=== PATIENT | male | born 1950 | race Caucasian/White ===

== ENCOUNTER 2016-04-21 12:09 | Emergency (ER) | payer MEDICARE, OTHER | END 2016-04-21 18:10 | disposition home or self-care (01) | LOC: ER 12:09 | DX: I63.9 Cerebral infarction, unspecified (principal); I95.9 Hypotension, unspecified; E86.0 Dehydration; F17.210 Nicotine dependence, cigarettes, uncomplicated | CPT/HCPCS: 36415; 96361; 96374 ==